=== PATIENT | female | born 1940 | race African-American/Black ===

== ENCOUNTER 2017-11-01 12:33 | Emergency (ER) | payer OTHER ==
[~2017-11-01] VITALS: Ht 172.7 cm; Wt 54.9 kg
[2017-11-01 15:53] VITALS: BP 105/64
[2017-11-01] MEDS: cefTRIAXone SOD 1,000 MG VL IM ONE (17:46)
== END 2017-11-01 18:05 | disposition home or self-care (01) ==
LOC: ER 12:33
DX: J02.9 Acute pharyngitis, unspecified (principal)
CPT/HCPCS: 71046; 96372; 99284; J0696

== ENCOUNTER 2018-11-04 18:32 | Emergency (ER) | payer OTHER ==
[~2018-11-04] VITALS: Ht 160 cm; Wt 49.9 kg
[2018-11-04 21:28] LABS: Basophils # (auto) 0 uL; Basophils % (auto) 0.3 % (0.0-2.0); Eosinophils # (auto) 0 uL; Eosinophils % (auto) 0.3 % (0.0-7.0); Hematocrit 43.2 % (36.0-46.0); Hemoglobin 14.1 g/dL (12.2-16.2); Lymphocytes # (auto) 2.7 uL; Lymphocytes % (auto) 22.1 % (10.0-50.0); Mean Corpuscular Hemoglobin 29.4 pg (28.0-32.0); Mean Corpuscular Hgb Conc. 32.6 g/dL (32.0-36.0); Monocytes # (auto) 1.5 uL; Monocytes % (auto) 12.9 % (0.0-12.0); Neutrophils # (auto) 7.8 uL; Neutrophils % (auto) 64.4 % (37.0-80.0); Platelet Count (auto) 328 10^3/uL (140-450); Red Cell Distribution Width 12.8 % (11.8-14.3)
[2018-11-04 21:34] LABS: INR 0.99 (0.9-1.15); Partial Thromboplastin Time 27.3 sec (23.78-33.04); Prothrombin Time 10.6 sec (9.27-12.13)
[2018-11-04 21:35] LABS: Alanine Aminotransferase 13 U/L (13-56); Albumin 3.4 g/dL (3.4-5.0); Anion Gap 10 (5-15); Aspartate Aminotransferase 74 U/L (15-37); BUN/Creatinine Ratio 48.8; Blood Urea Nitrogen 39 mg/dL (7-18); Calcium 9.1 mg/dL (8.5-10.1); Carbon Dioxide 24 mmol/L (21-32); Chloride 99 mmol/L (98-107); GFR African American > 60 mL/min; GFR Non-African American > 60 mL/min; Glucose 90 mg/dL (74-106); Magnesium 2.3 mg/dL (1.6-2.6); Potassium 4.1 mmol/L (3.5-5.1); Sodium 133 mmol/L (136-145)
[2018-11-04 21:38] LABS: Alkaline Phosphatase 341 U/L (45-117); Bilirubin, Total 0.7 mg/dL (0.2-1.0); Total Protein 8.7 g/dL (6.4-8.2)
[2018-11-04] MEDS ORDERED: LEVOFLOXACIN 750MG 150 ML IV ONE (23:00)
[2018-11-04 23:45] LABS: Urine Bacteria MANY /hpf (None Seen); Urine Blood 2+ /uL (Negative); Urine Mucus MODERATE (None Seen); Urine WBC 1941 /hpf (0 - 5); Urine WBC Clumps PRESENT /hpf (None Seen)
[2018-11-04 23:56] LABS: Urine Specific Gravity 1.028 (1.001-1.035)
[2018-11-05] MEDS ORDERED: MORPHINE SULFATE 10 MG/ML INJ 1ML SDV IV ONE (01:45)
[2018-11-05 02:12] VITALS: BP 119/72
== END 2018-11-05 02:25 | disposition home or self-care (01) ==
LOC: EDBD 18:32 → ER 18:32
DX: N39.0 Urinary tract infection, site not specified (principal); R41.82 Altered mental status, unspecified; F03.90 Unspecified dementia, unspecified severity, without behavioral disturbance, psychotic disturbance, mood disturbance, and anxiety
CPT/HCPCS: 36415; 51702; 71045; 80053; 81001; 83735; 83880; 84484; 85025; 85610; 85730; 93005; 94761; 96365; 96366; 96375; 99284; J1956; J2270